=== PATIENT | female | born 1955 | race Two or more races ===

== ENCOUNTER 2019-01-10 13:33 | Day surgery (SDC) | payer OTHER ==
[2019-01-10] MEDS ORDERED: LIDOCAINE 100 MG SYRINGE (16:35)
[2019-01-10] MEDS ORDERED: FENTAnyl 50 MCG/ML VIAL (16:35)
[2019-01-10] MEDS ORDERED: PROPOFOL 40 ML (16:35)
== END 2019-01-10 18:06 | disposition home or self-care (01) ==
LOC: GIL 13:33
DX: K31.9 Disease of stomach and duodenum, unspecified (principal); E11.9 Type 2 diabetes mellitus without complications; E03.9 Hypothyroidism, unspecified
CPT/HCPCS: 43239; 82962; 88305; 88312